=== PATIENT | male | born 1950 | race Caucasian/White ===

== ENCOUNTER 2021-07-10 11:15 | Day surgery (SDC) | payer MEDICARE, BC ==
[2021-07-10] VITALS (8 sets, daily range): BP systolic 112–128; BP diastolic 61–79
[~2021-07-10] VITALS: Ht 188 cm; Wt 84.7 kg
[2021-07-10] MEDS ORDERED: diphenhydrAMINE 25mg capsule PO PRN (11:45)
[2021-07-10] MEDS ORDERED: LIDOcaine/PRILOcaine 5gm cream TP ONE (11:45)
[2021-07-10] MEDS ORDERED: normal saline 1,000 ML IV SCH (11:45)
[2021-07-10] MEDS ORDERED: SITA1TAB2 PO (11:45)
[2021-07-10] MEDS ORDERED: LORazepam 0.5 MG tablet PO PRN (11:45)
[2021-07-10] MEDS ORDERED: PANT40TA54 PO (11:45)
[2021-07-10] MEDS ORDERED: ICOS1CAP PO (11:45)
[2021-07-10] MEDS ORDERED: DUTA0.5C36 PO (11:45)
[2021-07-10] MEDS ORDERED: nitroGLYCERIN-Tridil 50MG/D5W 250 ML IV ONE (12:44)
[2021-07-10] MEDS ORDERED: fentaNYL/PF 50MCG/1 ML 2ML syringe ONE (12:44)
[2021-07-10] MEDS ORDERED: midazolam 1 mg/ML 2ml injection ONE (12:44)
[2021-07-10] MEDS ORDERED: verapamil 2.5 mg/ml inj IV ONE (12:44)
[2021-07-10] MEDS ORDERED: heparin 1,000unit/ml 10ml vial 10 ML ONE (12:45)
[2021-07-10] MEDS ORDERED: LIDOcaine 1% (10mg/ml)w/preservative injection 20ml MDV ONE (12:45)
[2021-07-10] MEDS ORDERED: iohexol 350MG/ML 100ml bottle IV ONE (12:45)
[2021-07-10] MEDS ORDERED: OXAZEpam 15mg capsule PO PRN (15:55)
[2021-07-10] MEDS ORDERED: HYDROcodone/acetaminophen 10/325mg tab PO PRN (15:55)
[2021-07-10] MEDS ORDERED: proCHLORperazine 10 MG/2 ml inj IV PRN (15:55)
[2021-07-10] MEDS ORDERED: ondansetron/PF 4mg/2ml inj IV PRN (15:55)
[2021-07-10] MEDS ORDERED: HYDROcodone/acetaminophen 5mg/325mg tablet PO PRN (15:55)
== END 2021-07-10 17:45 | disposition home or self-care (01) ==
LOC: SSTAY O 11:15
PROVIDERS: ATTEND Internal Medicine Interventional Cardiology
DX: R07.89 Other chest pain (principal); I25.119 Atherosclerotic heart disease of native coronary artery with unspecified angina pectoris; E11.9 Type 2 diabetes mellitus without complications; E78.5 Hyperlipidemia, unspecified; N40.0 Benign prostatic hyperplasia without lower urinary tract symptoms; Z79.899 Other long term (current) drug therapy; Z98.890 Other specified postprocedural states; Z72.89 Other problems related to lifestyle; Z83.3 Family history of diabetes mellitus; Z80.3 Family history of malignant neoplasm of breast
CPT/HCPCS: 82948; 93005; 93458; 99152; C1769; C1894; J1644; J2001; J2250; J3010; J7030; Q0163; Q9967; 99153; A4620; A5120; J3490